=== PATIENT | female | born 1945 | race Caucasian/White ===

== ENCOUNTER 2017-10-21 13:25 | Emergency (ER) | payer MEDICARE, OTHER ==
[~2017-10-21] VITALS: Ht 160 cm; Wt 72.6 kg
[~2017-10-21 13:25] MED LIST: ACEBUTCAFT PO; ALBU90OI61 INH; ASPI325 PO; BUDE10.22; CALCAVITD PO; CLON1 PO; ESCI10 PO; Esgic Tablet1 EACH PO; FLUO10 PO; FOLI1 PO; FORM12IH IH; GABA300 PO; GABA600 PO; HYDACE10B PO; HYDR1TAB94 PO; Hydrocodone-Ap1 EA23 PO; IRBE150 PO; KETO5OP OD; LEVO-T75 MCG PO; LEVSOD100 PO; LEVSOD88 PO; LIVALO4 MG PO; LOSARTAN-HCTZ1 EACH PO; LOSHYD; LOSHYD PO; LOVA40 PO; METO25; METO50 PO; METO50ER PO; MOME220I IH; MONT10T PO; Micro-K10 MEQ; NIAC500ER PO; NORT25 PO; OMEP20ER PO; POTASSIUM99 M1; PRAVASTATIN SOD10 MG PO; PREG25; PROAIR RESPICL90 MCG INH; Percocet 5-3251 EACH PO; Prozac20 MG; RXHYD5325 PO; SENN187 PO; STOOL SOFTENER1 EAC1 PO; Sudogest30 MG PO; TUMS ULTRA ST1177 MG PO; Tamiflu75 MG PO; VITAMIN D250000 UNIT PO; Zofran4 MG PO; Zofran8 MG PO; [UNRECOGNIZED DRUG - OTHER] PO
[2017-10-21 14:44] LABS: BASOPHILS ABSOLUTE AUTO 0.05 K/mm3 (0.00-0.23); BASOPHILS PERCENT AUTO 1 % (0-2); EOSINOPHILS ABSOLUTE AUTO 0.17 K/mm3 (0.00-0.68); EOSINOPHILS PERCENT AUTO 3 % (0-6); Hematocrit 43.4 % (33.0-51.0); Hemoglobin 14.2 g/dL (11.5-16.0); IMMATURE GRAN ABSOLUTE AUTO 0.01 K/mm3 (0.00-0.10); IMMATURE GRAN PERCENT AUTO 0 % (0-1); LYMPHOCYTES ABSOLUTE AUTO 1.61 K/mm3 (0.84-5.20); LYMPHOCYTES PERCENT AUTO 28 % (21-46); MONOCYTES ABSOLUTE AUTO 0.75 K/mm3 (0.16-1.47); MONOCYTES PERCENT AUTO 13 % (4-13); Mean Corpuscular HGB 28.3 pg (26.0-34.0); Mean Corpuscular HGB Conc 32.7 g/dL (31.5-36.5); Mean Corpuscular Volume 87 fL (80-100); Mean Platelet Volume 11.7 fL (9.1-12.4); NEUTROPHILS ABSOLUTE AUTO 3.22 K/mm3 (1.96-9.15); NEUTROPHILS PERCENT AUTO 55 % (41-73); Platelet Count 210 K/mm3 (150-400); RDW Coefficient Variation 15.3 % (11.7-14.2); RDW Standard Deviation 48.3 fL (35.1-46.3); Red Blood Cell Count 5.01 M/mm3 (3.80-5.20); White Blood Cell Count 5.81 K/mm3 (4.00-11.30)
[2017-10-21 15:06] LABS: Alanine Aminotransfer (ALT/SGP 25 U/L (12-78); Albumin, Blood 3.8 g/dL (3.4-5.0); Alk Phos 59 U/L (50-136); Anion Gap 7 mmol/L (6-16); Aspartate Aminotrans (AST/SGOT 15 U/L (12-37); Bilirubin, Total 0.7 mg/dL (0.1-1.0); Blood Urea Nitrogen 14 mg/dL (8-24); Bun/Creatinine Ratio 18.3 (12.0-20.0); CO2, Blood 29 mmol/L (21-32); Chloride, Blood 100 mmol/L (98-108); Creatinine, Blood 0.77 mg/dL (0.40-1.00); Globulin, Blood 3.8 g/dL (2.2-4.0); Glomerular Filtration Rate >60 (60-); Glucose, Blood 112 mg/dL (70-99); Potassium, Blood 3.9 mmol/L (3.5-5.5); Sodium, Blood 136 mmol/L (136-145); Total Protein, Blood 7.6 g/dL (6.4-8.2)
[2017-10-21 16:07] LABS: Source, Urine Clean Catch
[2017-10-21] MEDS ORDERED: LOSA25 PO (16:28)
[2017-10-21] MEDS ORDERED: FLUO10 PO (16:30)
[2017-10-21] MEDS ORDERED: OMEPRAZOLE MAGN20 MG PO (16:31)
[2017-10-21 16:35] LABS: Appearance, Urine Clear (Clear); Bilirubin, Urine Neg (Neg); Blood, Urine Neg (Neg); Color, Urine Yellow (P-Yellow); Glucose Qualitative, Urine Neg (Neg); Ketones, Urine Neg (Neg); Leukocyte Esterase, Urine 2+ (Neg); Nitrite, Urine Neg (Neg); Protein, Urine Neg (Neg); Specific Gravity, Urine 1.015 (1.003-1.022); Urobilinogen, Urine NORM (Normal)
[2017-10-21 17:18] LABS: Bacteria Rare /hpf; Red Blood Cells, Urine Not Seen /hpf (0-2); Squamous Epithelial Cells Few /hpf (Few)
[2017-10-21] MEDS ORDERED: Zofran Odt8 MG SL (18:27)
== END 2017-10-21 18:45 | disposition home or self-care (01) ==
LOC: ER 13:25
PROVIDERS: Emergency Medicine
DX: D25.9 Leiomyoma of uterus, unspecified (principal); K21.9 Gastro-esophageal reflux disease without esophagitis; E03.9 Hypothyroidism, unspecified; I10 Essential (primary) hypertension; J45.909 Unspecified asthma, uncomplicated; E78.00 Pure hypercholesterolemia, unspecified; Z88.5 Allergy status to narcotic agent; Z88.8 Allergy status to other drugs, medicaments and biological substances; Z79.899 Other long term (current) drug therapy; Z87.891 Personal history of nicotine dependence
CPT/HCPCS: 36415; 74176; 76830; 76856; 80053; 81001; 83690; 85025; 87086; 96361; 96374; 96375; 99284; J1170; J2405; J7030

== ENCOUNTER 2017-12-12 07:55 | Day surgery (SDC) | payer MEDICARE, OTHER ==
[~2017-12-12] VITALS: Ht 160 cm; Wt 79.2 kg
[~2017-12-12 07:55] MED LIST changes: +LOSA25 PO; +OMEPRAZOLE MAGN20 MG PO; +Zofran Odt8 MG SL
[2017-12-12] MEDS ORDERED: PREG150 (08:45)
== END 2017-12-12 10:22 | disposition home or self-care (01) ==
LOC: ORSCSDS 07:55
PROVIDERS: Internal Medicine Gastroenterology
PROC: 0DB58ZX Excision of Esophagus, Via Natural or Artificial Opening Endoscopic, Diagnostic (ICD-10-PCS; principal; 2017-12-12 09:30)
PROC: 0DB68ZX Excision of Stomach, Via Natural or Artificial Opening Endoscopic, Diagnostic (ICD-10-PCS; principal; 2017-12-12 09:30)
PROC: 0D758ZZ Dilation of Esophagus, Via Natural or Artificial Opening Endoscopic (ICD-10-PCS; principal; 2017-12-12 09:30)
DX: K22.70 Barrett's esophagus without dysplasia (principal); R13.14 Dysphagia, pharyngoesophageal phase; K22.2 Esophageal obstruction; K29.60 Other gastritis without bleeding; K44.9 Diaphragmatic hernia without obstruction or gangrene; M79.7 Fibromyalgia; I10 Essential (primary) hypertension; E78.5 Hyperlipidemia, unspecified; J45.909 Unspecified asthma, uncomplicated; Z87.891 Personal history of nicotine dependence
CPT/HCPCS: 87081; 88305; J7120

== ENCOUNTER → 2018-02-14 | Outpatient (CLI) | payer MEDICARE, OTHER ==
[~2018-02-14] MED LIST changes: +PREG150
[2018-02-14 18:01] LABS: BASOPHILS ABSOLUTE AUTO 0.07 K/mm3 (0.00-0.23); BASOPHILS PERCENT AUTO 1 % (0-2); EOSINOPHILS ABSOLUTE AUTO 0.18 K/mm3 (0.00-0.68); EOSINOPHILS PERCENT AUTO 3 % (0-6); Hematocrit 39.9 % (33.0-51.0); Hemoglobin 13.3 g/dL (11.5-16.0); IMMATURE GRAN ABSOLUTE AUTO 0.01 K/mm3 (0.00-0.10); IMMATURE GRAN PERCENT AUTO 0 % (0-1); LYMPHOCYTES ABSOLUTE AUTO 1.89 K/mm3 (0.84-5.20); LYMPHOCYTES PERCENT AUTO 33 % (21-46); MONOCYTES ABSOLUTE AUTO 0.69 K/mm3 (0.16-1.47); MONOCYTES PERCENT AUTO 12 % (4-13); Mean Corpuscular HGB 28.8 pg (26.0-34.0); Mean Corpuscular HGB Conc 33.3 g/dL (31.5-36.5); Mean Corpuscular Volume 86 fL (80-100); Mean Platelet Volume 12.5 fL (9.1-12.4); NEUTROPHILS ABSOLUTE AUTO 2.86 K/mm3 (1.96-9.15); NEUTROPHILS PERCENT AUTO 50 % (41-73); Platelet Count 177 K/mm3 (150-400); RDW Coefficient Variation 13.7 % (11.7-14.2); RDW Standard Deviation 42.3 fL (35.1-46.3); Red Blood Cell Count 4.62 M/mm3 (3.80-5.20)
[2018-02-14 18:24] LABS: Albumin, Blood 3.9 g/dL (3.4-5.0); Albumin/Globulin Ratio 1.1 (0.8-1.8); Bilirubin, Total 0.3 mg/dL (0.1-1.0); Bun/Creatinine Ratio 23.6 (12.0-20.0); Calcium, Blood 8.8 mg/dL (8.5-10.1); Creatinine, Blood 1.1 mg/dL (0.40-1.00); Globulin, Blood 3.7 g/dL (2.2-4.0); Potassium, Blood 3.5 mmol/L (3.5-5.5); Thyroid Stimulating Hormone 0.826 uIU/mL (0.360-4.800); Total Protein, Blood 7.6 g/dL (6.4-8.2)
== END | disposition home or self-care (01) ==
LOC: LAB EV 17:57 → LAB SHORT 17:57
PROVIDERS: Physician Assistant Medical
DX: R53.83 Other fatigue (principal)
CPT/HCPCS: 80053; 84443; 85025

== ENCOUNTER → 2019-04-03 | Outpatient (CLI) | payer MEDICARE, OTHER ==
[~2019-04-03] MED LIST changes: +CEPH500 PO
== END | disposition home or self-care (01) ==
LOC: PLD 14:50 → LAB SHORT 14:50
DX: D22.5 Melanocytic nevi of trunk (principal)
CPT/HCPCS: 88305

== ENCOUNTER 2021-07-12 11:08 | Emergency (ER) | payer OTHER, MEDICARE ==
[~2021-07-12] VITALS: Ht 160 cm; Wt 72.6 kg
[2021-07-12] MEDS ORDERED: CELE100 PO (13:32)
== END 2021-07-12 13:42 | disposition home or self-care (01) ==
LOC: ER 11:08
DX: M54.50 Low back pain, unspecified (principal); R10.2 Pelvic and perineal pain; I10 Essential (primary) hypertension; E03.9 Hypothyroidism, unspecified; M79.7 Fibromyalgia; J44.9 Chronic obstructive pulmonary disease, unspecified; Z88.5 Allergy status to narcotic agent; Z88.1 Allergy status to other antibiotic agents; Z79.899 Other long term (current) drug therapy; Z87.891 Personal history of nicotine dependence; W01.0XXA Fall on same level from slipping, tripping and stumbling without subsequent striking against object, initial encounter
CPT/HCPCS: 72100; 72170; 99283-25

== ENCOUNTER 2021-08-15 23:14 | Emergency (ER) | payer MEDICARE, OTHER ==
[~2021-08-15] VITALS: Ht 160 cm; Wt 79.4 kg
[~2021-08-15 23:14] MED LIST changes: +CELE100 PO
[2021-08-16 00:17] LABS: BASOPHILS ABSOLUTE AUTO 0.08 K/mm3 (0.00-0.23); BASOPHILS PERCENT AUTO 1 % (0-2); EOSINOPHILS ABSOLUTE AUTO 0.19 K/mm3 (0.00-0.68); EOSINOPHILS PERCENT AUTO 3 % (0-6); Hematocrit 38.9 % (33.0-51.0); Hemoglobin 12.5 g/dL (11.5-16.0); IMMATURE GRAN ABSOLUTE AUTO 0.01 K/mm3 (0.00-0.10); IMMATURE GRAN PERCENT AUTO 0 % (0-1); LYMPHOCYTES ABSOLUTE AUTO 2.09 K/mm3 (0.84-5.20); LYMPHOCYTES PERCENT AUTO 34 % (21-46); MONOCYTES ABSOLUTE AUTO 0.75 K/mm3 (0.16-1.47); MONOCYTES PERCENT AUTO 12 % (4-13); Mean Corpuscular HGB 27.5 pg (26.0-34.0); Mean Corpuscular HGB Conc 32.1 g/dL (31.5-36.5); Mean Corpuscular Volume 86 fL (80-100); Mean Platelet Volume 11.5 fL (9.1-12.4); NEUTROPHILS ABSOLUTE AUTO 2.98 K/mm3 (1.96-9.15); NEUTROPHILS PERCENT AUTO 49 % (41-73); Platelet Count 210 K/mm3 (150-400); RDW Coefficient Variation 14.2 % (11.7-14.2); RDW Standard Deviation 43.7 fL (35.1-46.3); Red Blood Cell Count 4.55 M/mm3 (3.80-5.20)
[2021-08-16 00:36] LABS: Anion Gap 6 mmol/L (6-16); Blood Urea Nitrogen 19 mg/dL (8-24); Bun/Creatinine Ratio 23.8 (12.0-20.0); CO2, Blood 28 mmol/L (21-32); Calcium, Blood 8.9 mg/dL (8.5-10.1); Chloride, Blood 105 mmol/L (98-108); Glomerular Filtration Rate >60 (60-); Glucose, Blood 106 mg/dL (70-99); Potassium, Blood 4.1 mmol/L (3.5-5.5); Sodium, Blood 139 mmol/L (136-145); Troponin I <0.015 ng/mL (0.000-0.040)
== END 2021-08-16 00:51 | disposition home or self-care (01) ==
LOC: ER 23:14
PROVIDERS: Student in an Organized Health Care Education/Training Program
DX: I10 Essential (primary) hypertension (principal); M79.89 Other specified soft tissue disorders; E03.9 Hypothyroidism, unspecified; E78.00 Pure hypercholesterolemia, unspecified; J44.9 Chronic obstructive pulmonary disease, unspecified; Z87.891 Personal history of nicotine dependence; Z88.5 Allergy status to narcotic agent; Z88.8 Allergy status to other drugs, medicaments and biological substances; Z79.899 Other long term (current) drug therapy
CPT/HCPCS: 36415; 80048; 84484; 85025; 93005; 93010; 93971; 99284-25

== ENCOUNTER 2022-09-23 18:35 | Inpatient (IN) | payer MEDICARE, OTHER ==
[~2022-09-23] VITALS: Ht 165.1 cm; Wt 72.4 kg
[2022-09-23 18:53] LABS: BASOPHILS PERCENT AUTO 1 % (0-2); EOSINOPHILS ABSOLUTE AUTO 0.14 K/mm3 (0.00-0.68); EOSINOPHILS PERCENT AUTO 2 % (0-6); Hematocrit 41.1 % (33.0-51.0); Hemoglobin 13.6 g/dL (11.5-16.0); IMMATURE GRAN ABSOLUTE AUTO 0.02 K/mm3 (0.00-0.10); IMMATURE GRAN PERCENT AUTO 0 % (0-1); LYMPHOCYTES ABSOLUTE AUTO 2.43 K/mm3 (0.84-5.20); LYMPHOCYTES PERCENT AUTO 31 % (21-46); MONOCYTES ABSOLUTE AUTO 1.01 K/mm3 (0.16-1.47); MONOCYTES PERCENT AUTO 13 % (4-13); Mean Corpuscular HGB 27.7 pg (26.0-34.0); Mean Corpuscular HGB Conc 33.1 g/dL (31.5-36.5); Mean Corpuscular Volume 84 fL (80-100); Mean Platelet Volume 12.1 fL (9.1-12.4); NEUTROPHILS ABSOLUTE AUTO 4.28 K/mm3 (1.96-9.15); NEUTROPHILS PERCENT AUTO 53 % (41-73); Platelet Count 199 K/mm3 (150-400); RDW Standard Deviation 42.5 fL (35.1-46.3); Red Blood Cell Count 4.91 M/mm3 (3.80-5.20); White Blood Cell Count 7.98 K/mm3 (4.00-11.30)
[2022-09-23 19:28] LABS: Alanine Aminotransfer (ALT/SGP 21 U/L (12-78); Albumin, Blood 3.8 g/dL (3.4-5.0); Albumin/Globulin Ratio 1.1 (0.8-1.8); Alk Phos 61 U/L (50-136); Anion Gap 8 mmol/L (6-16); Aspartate Aminotrans (AST/SGOT 14 U/L (12-37); Bilirubin, Total 0.5 mg/dL (0.1-1.0); Blood Urea Nitrogen 22 mg/dL (8-24); Bun/Creatinine Ratio 25.5 (12.0-20.0); CO2, Blood 27 mmol/L (21-32); Chloride, Blood 102 mmol/L (98-108); Creatinine, Blood 0.86 mg/dL (0.40-1.00); Ethanol (Alcohol), Blood, Med <3 mg/dL; Globulin, Blood 3.6 g/dL (2.2-4.0); Glomerular Filtration Rate 69 (60-); Glucose, Blood 178 mg/dL (70-99); Potassium, Blood 3.3 mmol/L (3.5-5.5); Sodium, Blood 137 mmol/L (136-145); Total Protein, Blood 7.4 g/dL (6.4-8.2)
[2022-09-23 20:31] LABS: International Normalized Ratio 1.03; Prothrombin Time Results 10.8 Sec (9.7-11.5)
[2022-09-23 21:35] LABS: Influenza A, PCR NEGATIVE (NEGATIVE); Influenza B, PCR NEGATIVE (NEGATIVE); Resp Syncytial Virus, PCR NEGATIVE (NEGATIVE); SARS-Cov-2 (COVID-19) PCR, MMC NEGATIVE (NEGATIVE)
--- NOTE | 2022-09-24 01:00 | NUR ---
PT ARRIVES TO ROOM ICU 12 ADMIT FROM ED AT 2345. PT PRESENTS INTUBATED. DOES MAKE MOTIONS WITH UPPER EXTREMITIES TO PULL AT RESTRAINTS. ANXIOUS UPON ADMIT. PROPOFOL IN USE FOR SEDATION. WILL TITRATE TO SAS OF 3-4. NICARDIPINE DRIP HAD BEEN PLACE ON STANDBY PRIOR TO TRANSFER FROM ED. THIS HAS BEEN RESTARTED. WILL TITRATE PROPOFOL AND NICARDIPINE TO AFFECT. PT'S TWO SON'S TO ROOM AND PT'S GRANDSON. UPDATES GIVEN. PT HAS LEFT UPPER EXTREMITY TREMOR. AND HAS POSITIVE BABINKI'S BI LAT. MILD DECORTICUS NATURE TO RESPONSE OF STIMULIS. EYES ARE PERRLA AT THIS TIME. DOES SQUEEZE FINGERS LEFT HAND, AND NOT WITH RIGHT SIDE. WILL REVIEW CHART AND PLAN OF CARE FOR THIS PT.
[2022-09-24 03:14] LABS: Source, Urine Foley catheter
[2022-09-24 03:48] LABS: Appearance, Urine Clear (Clear); Bilirubin, Urine Neg (Neg); Blood, Urine Neg (Neg); Color, Urine Yellow (P-Yellow); Glucose Qualitative, Urine 2+ (Neg); Ketones, Urine Neg (Neg); Leukocyte Esterase, Urine Neg (Neg); Nitrite, Urine Neg (Neg); Protein, Urine 1+ (Neg); Specific Gravity, Urine 1.015 (1.003-1.022); Urobilinogen, Urine NORM (Normal)
--- NOTE | 2022-09-24 04:00 | NUR ---
PROPOFOL AT 40 MCG'S/KG/MIN NICARDIPINE HAS BEEN TITRATED TO 10 MG. WILL CONTINUE TO EVALUATE ABILITY TO TITRATE FURTHER. PT HAS HAD SLOWER RESPONSES TO STIMULI. INCREASING DECORTICUS RESPONSES. EYES REMAIN PERRLA. WHEN PT'S FAMILY CAME TO ROOM. SHE DID OPEN EYES SLIGHTLY AND REACT TO THEIR PRESENTS AND VOICES.
[2022-09-24 05:28] LABS: BASOPHILS ABSOLUTE AUTO 0.08 K/mm3 (0.00-0.23); BASOPHILS PERCENT AUTO 0 % (0-2); EOSINOPHILS ABSOLUTE AUTO 0.02 K/mm3 (0.00-0.68); EOSINOPHILS PERCENT AUTO 0 % (0-6); Hematocrit 41.3 % (33.0-51.0); Hemoglobin 14.2 g/dL (11.5-16.0); IMMATURE GRAN ABSOLUTE AUTO 0.09 K/mm3 (0.00-0.10); IMMATURE GRAN PERCENT AUTO 1 % (0-1); LYMPHOCYTES ABSOLUTE AUTO 1.49 K/mm3 (0.84-5.20); LYMPHOCYTES PERCENT AUTO 8 % (21-46); MONOCYTES PERCENT AUTO 9 % (4-13); Mean Corpuscular HGB 28.1 pg (26.0-34.0); Mean Corpuscular HGB Conc 34.4 g/dL (31.5-36.5); Mean Corpuscular Volume 82 fL (80-100); Mean Platelet Volume 12.5 fL (9.1-12.4); NEUTROPHILS ABSOLUTE AUTO 15.67 K/mm3 (1.96-9.15); NEUTROPHILS PERCENT AUTO 82 % (41-73); Platelet Count 189 K/mm3 (150-400); RDW Coefficient Variation 13.9 % (11.7-14.2); RDW Standard Deviation 41.1 fL (35.1-46.3); Red Blood Cell Count 5.06 M/mm3 (3.80-5.20); White Blood Cell Count 19.05 K/mm3 (4.00-11.30)
[2022-09-24 05:43] LABS: Albumin, Blood 3.6 g/dL (3.4-5.0); Bilirubin, Total 0.8 mg/dL (0.1-1.0); Bun/Creatinine Ratio 24.7 (12.0-20.0); Calcium, Blood 8.3 mg/dL (8.5-10.1); Creatinine, Blood 0.77 mg/dL (0.40-1.00); Globulin, Blood 3.5 g/dL (2.2-4.0); Potassium, Blood 3.2 mmol/L (3.5-5.5); Total Protein, Blood 7.1 g/dL (6.4-8.2)
--- NOTE | 2022-09-24 06:28 | NUR ---
HAVE PLACED PROPOFOL ON STANDBY. REMAINS WITH VERY DECREASED STIMULI RESPONSE. BABINSKI REMAINS SLUGGISH. DOES HAVE INCREASED AMOUNT OF DECORTICUS RESPONSE WITH STIMULI. NOW HAS SIDE TO SIDE ROVING WITH EYES. WILL CONTINUE TO MONITOR, AND WILL REPORT OFF TO ONCOMING RN.
--- NOTE | 2022-09-24 13:12 | NUR ---
[place] of Care: Care assumed at 0700hr. Patient intubated, ventilating without difficulty. Per NOC shift RN, propofol gtt stopped approx 1hr before shift change. Patient unresponsive to verbal stimuli, withdraws to painful stimuli on rt side, and absent of movement to lt side. No gag, or cough reflex. Pupils equal and reactive to light, continuous [id number] nystagmus noted. VSS, with nicardipine gtt at 10mg/hr. Peripheral IV's x2 patent and intact. Green cath patent and intact, draining clear yellow urine. Family at bedside throughout the morning, all questions answered to satisfaction. Awaiting arrival of more family members this afternoon, possible transition to comfort measures. Received call from [facility], patient ruled out for organ donation, instructed to call with cardiac time of .
--- NOTE | 2022-09-24 16:30 | NUR ---
Request for Prayer for the Sick (Last Rites) Family requested annointing of the sick, and agreed to have this bench press operator annoint and administer the blessing. Prayers were made for the pt. and family, Pt. is annointed. Facilitated a short life review. Family appropriately grieving. Family verbalized gratitude for the spiritual care visit.
--- NOTE | 2022-09-24 18:17 | NUR ---
Shift Summary: No significant changes throughout shift. No changes to neuro status throughout shift (see assumption note), remained off propofol gtt. Appeared comfortable and without pain. VSS, remained on nicardipine gtt at 10mg/hr throughout shift. Green cath and peripheral IV's remain patent and intact. Tolerating vent without difficulty. Family meeting with this RN, Dr. Ziegler, and approx 10 familly members this evening. Discussed poor prognosis and plan of care. Patient's family expressed that patient would not want to live in this state and expressed plan to transition to comfort measures. On-call arianna called to bedside for last rights and prayer with family at bedside. Patient's son then expressed plan to arrange for patient's to be transported from care facility to bedside for moving forward with extubation/comfort measures. This RN expressed staff will maintain current treatment and contact family with any changes.
--- NOTE | 2022-09-24 20:00 | NUR ---
ASSUMED CARE OF PT AT 1900. REPORT RECEIVED. PT PRESENTS IN BED. INTUBATED. AC 16, Tv 350, PEEP 5, FIO2 30 PERCENT. NICARDIPINE DRIP AT 10 MG/HR. MAINTAINS SBP IN 140'S. SCANT SECRETIONS PER ETT. LOW GRADE FEVER. WILL REVIEW CHART AND PLAN OF CARE FOR THIS PT.
--- NOTE | 2022-09-24 23:15 | NUR ---
PT'S SON COMES IN TO SEE PT THIS EVENING. AFFIRMS PLAN TO HAVE PT'S COME TOMORROW TO SEE PT. PT IN NO APPARENT DISTRESS. DOES CONTINUE WITH HORIZONAL ROVING EYES. NO PURPOSEFUL MOVEMENTS. DOES HAS DECORTICAL POSTURING WITH SUCTIONING AND STIMULI. WILL CONTINUE TO MONITOR PT.
--- NOTE | 2022-09-25 00:30 | NUR ---
OF NOTE: PUPILS NO LONGER EQUAL. LEFT 3 MM VERSUS 2 MM RIGHT. NO OTHER NOTICEABLE NEUROLOGICAL CHANGES. PT REMAINS COMATOSE. WILL HAVE REFLEX REACTION TO STIMULI.
--- NOTE | 2022-09-25 03:57 | NUR ---
4 MM LEFT VERSUS 2 MM RIGHT PUPIL SIZE.
--- NOTE | 2022-09-25 06:29 | NUR ---
HAVE TURNED NICARDIPINE DRIP TO STANDBY. PT HAS HAD SEVERAL CHANGES IN CARDIAC RHYTHM. HAS GONE FROM [place] TO AFIB RVR, BACK TO [place], FOLLOWED BY SVT. CURRENTLY IN SIN[place]. HAVE MADE CALLS TO FAMILY X 3 DIFFERENT PHONE NUMBERS REQUESTIMNG RETURN CALL WITHOUT CALLS RECEIVED. PT HAS GONE FROM 4MM PUPIL ON LEFT AND 2 MM RIGHT WITH SLOW REACTION TO LIGHT. PT CURRENTLY AT 4MM BI LAT WITHOUT ANY REACTION TO LIGHT. PT'S BLOOD PRESSURES HAVE GONE HYPOTENSIVE. WILL MONITOR FOR FURTHER CHANGES. UPDATE GIVEN TO DR UMANA ON PT'S DECLINE IN STATUS. WILL REPORT OFF TO ONCOMING RN.
--- NOTE | 2022-09-25 07:34 | NUR ---
ASSUMED CARE BEDSIDE REPORT RECIEVED. DR BURDEN AT BEDSIDE DURING REPORT. PT HYPOTENSIVE. MULTIPLE CALLS MADE TO ATTEMPT TO REACH FAMILY PER NOC SHIFT. NO ESCALATION OF CARE AT THIS TIME PER DR BURDEN. WILL CONTINUE TO MONITOR.
--- NOTE | 2022-09-25 16:42 | NUR ---
COMFORT CARE PT FAMILY AT BEDSIDE WISHED TO PROCEED WITH COMFORT CARE. PT MEDICATED WITH MORPHINE PER EMAR, THEN EXTUBATED BY RT AT 1638. PT FAMILY AT BEDSIDE. WILL CONTINUE TO MONITOR.
--- NOTE | 2022-09-25 17:12 | NUR ---
TIME OF PT WITHOUT ANY SPONTANEOUS RESPIRATIONS OR APICAL PULSE AUSCULTATED. TIME OF 1705. MULTIPLE FAMILY MEMBERS AT BEDSIDE. DR LUNA NOTIFIED.
== END 2022-09-25 17:05 | DRG 64 ==
LOC: ER 18:35 → ICUW 18:36 → ER 21:34 → ICUW 23:41
PROVIDERS: Student in an Organized Health Care Education/Training Program; ADMIT Internal Medicine
PROC: 5A1945Z Respiratory Ventilation, 24-96 Consecutive Hours (ICD-10-PCS; 2022-09-23)
PROC: 0BH17EZ Insertion of Endotracheal Airway into Trachea, Via Natural or Artificial Opening (ICD-10-PCS; principal; 2022-09-24)
DX: I62.9 Nontraumatic intracranial hemorrhage, unspecified (principal); G93.5 Compression of brain; J96.00 Acute respiratory failure, unspecified whether with hypoxia or hypercapnia; G37.3 Acute transverse myelitis in demyelinating disease of central nervous system; Z51.5 Encounter for palliative care; Z66 Do not resuscitate; E03.9 Hypothyroidism, unspecified; M79.7 Fibromyalgia; I10 Essential (primary) hypertension; M19.90 Unspecified osteoarthritis, unspecified site; J44.9 Chronic obstructive pulmonary disease, unspecified; E78.00 Pure hypercholesterolemia, unspecified; K22.70 Barrett's esophagus without dysplasia; Z20.822 Contact with and (suspected) exposure to COVID-19; Z96.698 Presence of other orthopedic joint implants; Z79.899 Other long term (current) drug therapy; Z88.5 Allergy status to narcotic agent; Z88.1 Allergy status to other antibiotic agents; Z79.891 Long term (current) use of opiate analgesic; Z79.2 Long term (current) use of antibiotics; Z79.51 Long term (current) use of inhaled steroids; Z98.890 Other specified postprocedural states; Z87.891 Personal history of nicotine dependence
CPT/HCPCS: 0241U; 31500; 36415; 51702; 70450; 71045; 80053; 82947; 85025; 85610; 85730; 86850; 86900; 86901; 93005; 93010; 94002; 94003; 96365-59; 96366-59; 96368; 96375-59; 99291-25; A9270; G0378; G0480; J1953; J2270; J2704; J2765; J3480; J7030; J7050